=== PATIENT | female | born 1945 | race Caucasian/White ===

== ENCOUNTER 2024-03-01 11:15 | Outpatient (CLI) | payer BC, MEDICARE | END 2024-03-01 11:16 | disposition home or self-care (01) | LOC: CSHMAMMO 11:15 | PROVIDERS: ATTEND Family Medicine Sports Medicine | DX: Z13.820 Encounter for screening for osteoporosis (principal); Z78.0 Asymptomatic menopausal state; M81.0 Age-related osteoporosis without current pathological fracture; M85.89 Other specified disorders of bone density and structure, multiple sites | CPT/HCPCS: 77080 ==